=== PATIENT | female | born 1990 | race Native Hawaiian/Other Pacific Islander ===

== ENCOUNTER 2017-12-14 14:38 | Outpatient (CLI) | payer OTHER ==
[2017-12-14 14:52] LABS: PLATELET COUNT 149 K/uL (152-353)
[2017-12-14 15:42] LABS: POTASSIUM 3.7 mmol/L (3.6-5.2)
== END 2017-12-14 19:42 | disposition home or self-care (01) ==
LOC: LAB 14:38
PROVIDERS: Nurse Practitioner Family
DX: Z00.00 Encounter for general adult medical examination without abnormal findings (principal); R53.82 Chronic fatigue, unspecified; R53.81 Other malaise
CPT/HCPCS: 80053; 80061; 83036; 84436; 84443; 85027

== ENCOUNTER 2021-03-05 03:59 | Emergency (ER) | payer OTHER ==
[~2021-03-05] VITALS: Ht 182.9 cm; Wt 86.2 kg
[2021-03-05 04:13] VITALS: TEMP 98.1
[2021-03-05 05:10] LABS: PLATELET COUNT 156 K/uL (152-353)
[2021-03-05 05:14] LABS: POTASSIUM 2.9 mmol/L (3.6-5.2); SODIUM 139 mmol/L (136-145)
[2021-03-05 07:14] LABS: POTASSIUM 2.9 mmol/L (3.6-5.2)
[2021-03-05 07:26] VITALS: BP 135/97
== END 2021-03-05 07:26 | disposition home or self-care (01) ==
LOC: ED 03:59
PROVIDERS: Emergency Medicine
DX: R00.2 Palpitations (principal); E87.6 Hypokalemia; R82.71 Bacteriuria
CPT/HCPCS: 36415; 80048; 80053; 80307; 81000; 82150; 83690; 83735; 84484; 85027; 87088; 93005; 96365; 96375; 99284; J2405